=== PATIENT | male | born 1995 | race Caucasian/White ===

== ENCOUNTER 2021-11-26 17:46 | Inpatient (IN) ==
--- NOTE | 2021-11-26 18:18 | Emergency Department Note ---
History of Present Illness General Chief complaint: Mental Health Evaluation Stated complaint: REFERRED BY DOCTOR, MENTAL HEALTH EVALUATION Time Seen by Provider: 11/26/21 18:06 History of Present Illness 25-year-old male presents to the ED with a chief complaint of having delusions and paranoia and not sleeping. Most of the history was obtained from the patient's female partner. She states that a couple weeks ago he started to seem like he was not following conversations. She would be talking to him and he would make irrelevant conclusions or statements related to the conversation. The patient also took apart his computer at 1 point. He asked the female partner to check her ear pods to make sure that they were not tampered with. He also threw out his SIM card from his phone. The patient had a recent change from his Adderall to Vyvanse. Denies being suicidal or homicidal. Home Medications Medication Instructions Recorded Confirmed Type Vyvanse 40 mg PO DAILY 11/26/21 11/26/21 History melatonin 6 mg PO DAILY 11/26/21 11/26/21 History Allergies Allergy/AdvReac Type Severity Reaction Status Date / Time No Known Allergies Allergy Unverified 11/26/21 19:40 Past Med/Surg History Medical History (Updated 11/26/21 @ 23:17 by Mikey Graham DO) ADHD Social History Smoking Status: Never smoker Feels Safe at Home: Yes Review of Systems A total of 10 systems reviewed and were otherwise negative Physical Exam Vital Signs Vital Signs - 24 hr 11/26/21 17:47 11/26/21 21:00 Temperature 36.8 C Temperature Source Oral Pulse Rate [Finger] 86 Respiratory Rate 18 18 Respiratory Effort / Characteristics Non-Labored Respiratory Depth Normal Blood Pressure 146/96 H Blood Pressure [Right Arm] 156/90 H Blood Pressure Mean 112 Blood Pressure Mean [Right Arm] 112 Blood Pressure Position [Right Arm] Standing Pulse Oximetry 97 98 Oxygen Delivery Method Room Air Sepsis Recent Fever Within 48 Hours No Sepsis New/Unexplained Change in Mental Status N/A Sepsis Action Taken by Nursing No Action Required CONSTITUTIONAL/VITAL SIGNS: Reviewed / noted above. GENERAL: Non-toxic in appearance. INTEGUMENTARY: Warm, dry, and [place]. HEAD: Normocephalic. EYES: without scleral icterus or trauma. ENT/OROPHARYNX: clear and moist. LYMPHADENOPATHY/NECK: Is supple without lymphadenopathy or meningismus. RESPIRATORY: Clear to auscultation bilaterally. No increased work of breathing. CARDIOVASCULAR: Regular rate and rhythm. GI/ABDOMEN: Soft and nontender. No organomegaly or pulsatile mass. EXTREMITIES: Warm and well perfused. BACK: No CVA tenderness. NEUROLOGICAL: Intact without focal deficits. PSYCHIATRIC: normal affect. MUSCULOSKELETAL: Normally developed with good muscle tone. TRIAGE NURSING DOCUMENTATION REVIEWED. Medical Decision Making Differential Diagnosis Differential includes toxic ingestions, self-mutilation, suicidal ideation, suicide attempt, paranoia, insomnia, delusions, depression. Medical Records Attestation: I reviewed the patient's medical records. Home Medications Current Medication List: was personally reviewed by me Laboratory Data Attestation: I reviewed the patient's lab results. Result diagrams: 11/26/21 18:34 11/26/21 18:34 Lab Results 11/26/21 11/26/21 11/26/21 Range/Units 18:34 18:34 18:34 WBC 9.79 (4.8-10.8) K/uL RBC 5.34 (4.7-6.1) M/uL Hgb 15.5 (14.0-18.0) g/dL Hct 45.8 (42-52) % MCV 85.8 (80-100) fL MCH 29.0 (25-34) pg MCHC 33.8 (32-36) g/dL RDW Std Deviation 40.7 (36.4-46.3) fL RDW Coeff of Helder 13.0 (11.5-14.5) % Plt Count 297 (130-400) K/uL MPV 9.8 (7.4-10.4) fL Immature Gran % (Auto) 0.2 % Neut % (Auto) 61.3 % Lymph % (Auto) 30.4 % [place] % (Auto) 7.0 % Eos % (Auto) 0.8 % Baso % (Auto) 0.3 % Neut # (Auto) 5.99 (1.4-6.5) K/uL Lymph # (Auto) 2.98 (1.2-3.4) K/uL [place] # (Auto) 0.69 H (0.11-0.59) K/uL Eos # (Auto) 0.08 (0-0.5) K/uL Baso # (Auto) 0.03 (0-0.2) K/uL Immature Gran # (Auto) 0.02 (0.00-0.02) K/uL Sodium 138 (136-145) mmol/L Potassium 3.6 (3.5-5.1) mmol/L Chloride 105 (98-107) mmol/L Carbon Dioxide 22 (21-32) mmol/L Anion Gap 11 (3-11) BUN 13 (6-23) mg/dl Creatinine 0.86 (0.6-1.4) mg/dl Est Cr Clr Drug Dosing 154.0 ml/min Est GFR ( Amer) 140.7 ml/min Est GFR (Non-Af Amer) 121.4 ml/min BUN/Creatinine Ratio 15.1 (10-20) Glucose 80 (70-99(Fasting)) mg/dl Calcium 9.7 (8.5-10.1) mg/dl Total Bilirubin 0.7 (0.2-1.0) mg/dl AST 24 (13-39) U/L ALT 46 (7-52) U/L Alkaline Phosphatase 78 (34-104) U/L Total Protein 7.7 (6.0-8.3) gm/dl Albumin 4.9 (3.4-5.0) gm/dl Globulin 2.8 (2.5-4.0) gm/dl Albumin/Globulin Ratio 1.8 (0.9-2) TSH 1.026 (0.300-4.500) uIu/ml Urine Color Urine Appearance (Clear) Urine pH (4.5-7.5) Ur Specific [place] (1.000-1.030) Urine Protein (Negative) Urine Glucose (UA) (Negative) Urine Ketones (Negative) Urine Blood (Negative) Urine Nitrite (Negative) Urine Bilirubin (Negative) Urine Urobilinogen (Negative) Ur Leukocyte Esterase (Negative) Urine WBC (Auto) (0-5) /hpf Urine RBC (Auto) (0-4) /hpf U Hyaline Cast (Auto) (0-5) /lpf U Epithel Cells (Auto) (0-5) /lpf Urine Bacteria (Auto) (Negative) Salicylates (3.0-30) mg/dl Urine Opiates Screen (Neg) Ur Methadone, Qual (Neg) Acetaminophen (10-30) ug/ml Urine Barbiturates (Neg) Ur Phencyclidine (PCP) (Neg) U Amphetamin/Meth Scrn (Neg) MDMA (Ecstasy) Screen (Neg) U Benzodiazepines Scrn (Neg) Ur Cocaine Metabolite (Neg) U Marijuana (THC) Screen (Neg) Ethyl Alcohol mg/dL (<10.0) mg/dl SARS-CoV-2, RNA, NAAT (NEGATIVE) 11/26/21 11/26/21 11/26/21 Range/Units 18:34 18:34 18:34 WBC (4.8-10.8) K/uL RBC (4.7-6.1) M/uL Hgb (14.0-18.0) g/dL Hct (42-52) % MCV (80-100) fL MCH (25-34) pg MCHC (32-36) g/dL RDW Std Deviation (36.4-46.3) fL RDW Coeff of Helder (11.5-14.5) % Plt Count (130-400) K/uL MPV (7.4-10.4) fL Immature Gran % (Auto) % Neut % (Auto) % Lymph % (Auto) % [place] % (Auto) % Eos % (Auto) % Baso % (Auto) % Neut # (Auto) (1.4-6.5) K/uL Lymph # (Auto) (1.2-3.4) K/uL [place] # (Auto) (0.11-0.59) K/uL Eos # (Auto) (0-0.5) K/uL Baso # (Auto) (0-0.2) K/uL Immature Gran # (Auto) (0.00-0.02) K/uL Sodium (136-145) mmol/L Potassium (3.5-5.1) mmol/L Chloride (98-107) mmol/L Carbon Dioxide (21-32) mmol/L Anion Gap (3-11) BUN (6-23) mg/dl Creatinine (0.6-1.4) mg/dl Est Cr Clr Drug Dosing ml/min Est GFR ( Amer) ml/min Est GFR (Non-Af Amer) ml/min BUN/Creatinine Ratio (10-20) Glucose (70-99(Fasting)) mg/dl Calcium (8.5-10.1) mg/dl Total Bilirubin (0.2-1.0) mg/dl AST (13-39) U/L ALT (7-52) U/L Alkaline Phosphatase (34-104) U/L Total Protein (6.0-8.3) gm/dl Albumin (3.4-5.0) gm/dl Globulin (2.5-4.0) gm/dl Albumin/Globulin Ratio (0.9-2) TSH (0.300-4.500) uIu/ml Urine Color Dark Yellow Urine Appearance Clear (Clear) Urine pH 6.0 (4.5-7.5) Ur Specific [place] 1.038 H (1.000-1.030) Urine Protein Trace H (Negative) Urine Glucose (UA) Negative (Negative) Urine Ketones 4+ H (Negative) Urine Blood Negative (Negative) Urine Nitrite Negative (Negative) Urine Bilirubin Negative (Negative) Urine Urobilinogen Negative (Negative) Ur Leukocyte Esterase Negative (Negative) Urine WBC (Auto) 1-5 (0-5) /hpf Urine RBC (Auto) 0-4 (0-4) /hpf U Hyaline Cast (Auto) 1-5 (0-5) /lpf U Epithel Cells (Auto) 5-10 H (0-5) /lpf Urine Bacteria (Auto) Negative (Negative) Salicylates < 3.0 L (3.0-30) mg/dl Urine Opiates Screen (Neg) Ur Methadone, Qual (Neg) Acetaminophen < 3 L (10-30) ug/ml Urine Barbiturates (Neg) Ur Phencyclidine (PCP) (Neg) U Amphetamin/Meth Scrn (Neg) MDMA (Ecstasy) Screen (Neg) U Benzodiazepines Scrn (Neg) Ur Cocaine Metabolite (Neg) U Marijuana (THC) Screen (Neg) Ethyl Alcohol mg/dL < 10.0 (<10.0) mg/dl SARS-CoV-2, RNA, NAAT (NEGATIVE) 11/26/21 11/26/21 Range/Units 18:34 18:34 WBC (4.8-10.8) K/uL RBC (4.7-6.1) M/uL Hgb (14.0-18.0) g/dL Hct (42-52) % MCV (80-100) fL MCH (25-34) pg MCHC (32-36) g/dL RDW Std Deviation (36.4-46.3) fL RDW Coeff of Helder (11.5-14.5) % Plt Count (130-400) K/uL MPV (7.4-10.4) fL Immature Gran % (Auto) % Neut % (Auto) % Lymph % (Auto) % [place] % (Auto) % Eos % (Auto) % Baso % (Auto) % Neut # (Auto) (1.4-6.5) K/uL Lymph # (Auto) (1.2-3.4) K/uL [place] # (Auto) (0.11-0.59) K/uL Eos # (Auto) (0-0.5) K/uL Baso # (Auto) (0-0.2) K/uL Immature Gran # (Auto) (0.00-0.02) K/uL Sodium (136-145) mmol/L Potassium (3.5-5.1) mmol/L Chloride (98-107) mmol/L Carbon Dioxide (21-32) mmol/L Anion Gap (3-11) BUN (6-23) mg/dl Creatinine (0.6-1.4) mg/dl Est Cr Clr Drug Dosing ml/min Est GFR ( Amer) ml/min Est GFR (Non-Af Amer) ml/min BUN/Creatinine Ratio (10-20) Glucose (70-99(Fasting)) mg/dl Calcium (8.5-10.1) mg/dl Total Bilirubin (0.2-1.0) mg/dl AST (13-39) U/L ALT (7-52) U/L Alkaline Phosphatase (34-104) U/L Total Protein (6.0-8.3) gm/dl Albumin (3.4-5.0) gm/dl Globulin (2.5-4.0) gm/dl Albumin/Globulin Ratio (0.9-2) TSH (0.300-4.500) uIu/ml Urine Color Urine Appearance (Clear) Urine pH (4.5-7.5) Ur Specific [place] (1.000-1.030) Urine Protein (Negative) Urine Glucose (UA) (Negative) Urine Ketones (Negative) Urine Blood (Negative) Urine Nitrite (Negative) Urine Bilirubin (Negative) Urine Urobilinogen (Negative) Ur Leukocyte Esterase (Negative) Urine WBC (Auto) (0-5) /hpf Urine RBC (Auto) (0-4) /hpf U Hyaline Cast (Auto) (0-5) /lpf U Epithel Cells (Auto) (0-5) /lpf Urine Bacteria (Auto) (Negative) Salicylates (3.0-30) mg/dl Urine Opiates Screen Neg (Neg) Ur Methadone, Qual Neg (Neg) Acetaminophen (10-30) ug/ml Urine Barbiturates Neg (Neg) Ur Phencyclidine (PCP) Neg (Neg) U Amphetamin/Meth Scrn Pos H (Neg) MDMA (Ecstasy) Screen Neg (Neg) U Benzodiazepines Scrn Neg (Neg) Ur Cocaine Metabolite Neg (Neg) U Marijuana (THC) Screen Pos H (Neg) Ethyl Alcohol mg/dL (<10.0) mg/dl SARS-CoV-2, RNA, NAAT NEGATIVE (NEGATIVE) MDM Narrative 25-year-old male presents with his female partner with concerns of paranoia, insomnia and incongruent thoughts. The patient's medical evaluation has been reviewed. He is medically cleared. He was accepted at [facility] requested Zyprexa be given. This was given p.o. Impression & Plan Acute paranoia, Insomnia Discharge Plan Visit Data Chief Complaint: Mental Health Evaluation Stated Complaint: REFERRED BY DOCTOR, MENTAL HEALTH EVALUATION ED Provider: Mikey Graham Discharge Problem: Acute paranoia, Insomnia Patient Disposition: Transfer Behavioral Health Fac Forms Stand Alone Forms: My [facility], Suicide Prevention Resources Prescriptions Prescriptions: No Action Vyvanse tablet 40 mg PO DAILY RF: 0 melatonin 6 mg PO DAILY RF: 0 Referrals Referrals: PCP,NO [Primary Care Provider] -
[2021-11-26 18:50] LABS: Appearance Urine Clear (Clear); Bacteria Urine Automated Negative (Negative); Bilirubin Urine Negative (Negative); Blood Urine Negative (Negative); Color Urine Dark Yellow; Glucose Urine UA Negative (Negative); Ketones Urine 4+ (Negative); Leukocyte Esterase Urine Negative (Negative); Nitrite Urine Negative (Negative); Protein Urine Trace (Negative); RBC Urine Automated 0-4 /hpf (0-4); Specific Gravity Urine 1.038 (1.000-1.030); Urobilinogen Urine Negative (Negative)
[2021-11-26 19:03] LABS: Basophils # (auto) 0.03 K/uL (0-0.2); Basophils % (auto) 0.3 %; Eosinophils # (auto) 0.08 K/uL (0-0.5); Eosinophils % (auto) 0.8 %; Hematocrit (blood only) 45.8 % (42-52); Hemoglobin 15.5 g/dL (14.0-18.0); Immature Granulocytes # (auto) 0.02 K/uL (0.00-0.02); Immature Granulocytes % (auto) 0.2 %; Lymphocytes # (auto) 2.98 K/uL (1.2-3.4); Lymphocytes % (auto) 30.4 %; Mean Corpuscular Hgb Conc 33.8 g/dL (32-36); Mean Corpuscular Volume 85.8 fL (80-100); Mean Platelet Volume 9.8 fL (7.4-10.4); Monocytes # (auto) 0.69 K/uL (0.11-0.59); Neutrophils # (auto) 5.99 K/uL (1.4-6.5); Neutrophils % (auto) 61.3 %; Platelet Count 297 K/uL (130-400); RDW Standard Deviation 40.7 fL (36.4-46.3); Red Blood Count 5.34 M/uL (4.7-6.1); White Blood Count 9.79 K/uL (4.8-10.8)
[2021-11-26 19:08] LABS: Albumin Globulin Ratio 1.8 (0.9-2); Albumin Level 4.9 gm/dl (3.4-5.0); BUN Creatinine Ratio 15.1 (10-20); Bilirubin,Total 0.7 mg/dl (0.2-1.0); Calcium 9.7 mg/dl (8.5-10.1); Est GFR (African American) 140.7 ml/min; Est GFR (Non-African American) 121.4 ml/min; Globulin 2.8 gm/dl (2.5-4.0); Potassium 3.6 mmol/L (3.5-5.1); Total Protein 7.7 gm/dl (6.0-8.3)
[2021-11-26 19:10] LABS: Acetaminophen < 3 ug/ml (10-30); Salicylate < 3.0 mg/dl (3.0-30)
[2021-11-26 19:36] LABS: Amphetamines+Metham, Urine Pos (Neg); Barbiturates, Urine Neg (Neg); Benzodiazepine, Urine Neg (Neg); Cocaine, Urine Neg (Neg); MDMA (Ecstacy), Urine Neg (Neg); Methadone, Urine Neg (Neg); Opiate, Urine Neg (Neg); Phencyclidine, Urine Neg (Neg)
[2021-11-26] MEDS ORDERED: OLANZapine 5 MG TABLET PO STA (22:47)
[2021-11-27] MEDS ORDERED: BISMUTH SUBSALICYLATE LIQD 236 ML PO PRN (01:17)
[2021-11-27] MEDS ORDERED: ALUMINUM/MAGNESIUM SUSP 30 ML UDC PO PRN (01:17)
[2021-11-27] MEDS ORDERED: SODIUM CHLORIDE 0.65% NA SOLN 45 ML (OCEAN) PRN (01:17)
[2021-11-27] MEDS ORDERED: hydrOXYzine HCl 25 MG TAB PO PRN ×2 (01:17)
[2021-11-27] MEDS ORDERED: MAGNESIUM HYDROXIDE SUSP 30 ML UDC PO PRN (01:17)
[2021-11-27] MEDS ORDERED: ACETAMINOPHEN 325 MG TAB PO PRN (01:17)
--- NOTE | 2021-11-27 08:43 | History & Physical ---
Date of Service November 27, 2021 Impression / Recommendations Impression The patient is a 25 year old man with a history of ADHD who was admitted for worsening psychosis in the context of synthetic cannabis use and recent switch from Adderall to Vyvanse and ongoing stress related to an upcoming move across the country next month. Diagnostically consistent with unspecified psychosis, differential including substance-induced vs medication-induced vs BPAD with ken vs primary psychotic disorder/brief psychotic episode vs MDD with psychotic features. Medical cause unlikely given no neurological symptoms, stable vital signs and recent increase in substance use and med change that better explains recent symptom emergence. The patient is deemed unstable and requires psychiatric hospitalization for diagnostic clarification, safety and stabilization, medication management and development of further coping skills. Discussed medication treatment options. Discussed risks, benefits and alternatives. Patient would like to start and consented to olanzapine for psychosis. Reviewed side effects including but not limited to: movement (TD, NMS), cardiac (QTc prolongation), and metabolic (stroke, insulin resistance) and necessity for fasting lipid and glucose labwork and AIMS done with score of 0. The patient's use history suggests problematic substance use. Brief intervention was offered and accepted. Intervention was greater than 5 minutes in length and included assessing readiness to quit, advice on how to reduce or abstain and to set a specific goal for this hospitalization. script worker will also assist in anticipating barriers to reducing or abstaining from substance use and in problem-solving for solutions to those problems while arranging for referral to appropriate treatment. The patient is in contemplative stage with regards to transtheoretical model of change. The patient is advised to decrease consumption due to depressant and dopaminergic effects and risk of interaction with prescription medications. The patient agreed to reduce synthetic cannabis and vaping use and will be provided with recovery materials to continue to educate self on how to cope with their condition without using substances. MNPR due tp acute psychosis and paranoia and inability to tolerate interactions with peers. (1) Brief psychotic disorder: (2) ADHD: (3) Cannabis use disorder, moderate, dependence: 11/27/21: The patient was admitted to the [facility] ([facility]) on q15 min checks (behavioral with suicide precautions) for safety. The patient will participate in group, recreational, and milieu therapies and will be offered additional individual and family sessions as clinically appropriate. -Start zyprexa 2.5 mg qAM & 5 mg qhs -fasting lipid and glucose when able to tolerate (hopefully in next 1-2 days) -NRT patch and gum prn -Will attempt to reach out to Dr. Rosa once he signs PING and given constraints of holiday weekend Inventory Assets Strengths: supportive family and partner, employed, some ability to reality-test, willing to seek treatment Needs: medication adjustment, safety/stabilization, additional coping skills Suicide Risk Level Suicide Risk Level: Moderate (q15 min suicide checks) (High-Moderate) Suicide Risk Level Comments: Acute risk is elevated given passive SI and acute psychosis but also able to safety contract, feels safe here, agrees to notify nursing if he develops active SI and denies command AH. 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 Chief Complaint "I'm losing my mind". History of Present Illness Dinora presents for psychiatric admission for worsening paranoia, disorganized behaviors, auditory hallucinations which started about three weeks ago and have been acutely worsening since Monday. He also developed passive SI in the last few days due to feeling like he's "losing my mind". He notes "I know it's just in my head" but feels unable to manage the auditory hallucinations nor paranoia. He is very tearful and distraught throughout the interview expressing his distress from the psychosis symptoms but can confirm that things worsened acutely in the last few days and that the zyprexa last night "really helped, it was the first time I've been able to calm down in weeks". Further history is based on his report as well as collateral from ED reports supplied in part by his girlfriend and collateral from his mother. About 3 weeks ago due to a change in insurance coverage his psychiatrist switched him from Adderall to Vyvanse but he felt more activated and paranoid with this change and they had recently reduced the dose and then he discontinued it on . He's also been using delta 8, a synthetic cannabis product, and vaping high amounts of nicotine in the last 4 weeks. He's had more disrupted sleep patterns-sleeping a lot and then more insomnia, as well as alteration in appetite with increased at times and then periods of decreased appetite with reported weight loss of up to 30lbs in the last month. BMI on admission is 25 and normal. On Monday he had to stop his work day early due to worsening disorganization and became worried that he was being monitored and took apart his computer and removed the SIM card from his phone. He was paranoid his conversations with his girlfriend were being monitored through her [employer] airpods. He also reported auditory hallucinations of "noises" in the zepeda and "from my stomach". Had also been hearing auditory hallucinations of the voice of his former speech coach and his mother and seeing visual hallucinations of spots and bugs. His job has been very stressful recently and he and his girlfriend are in the process of moving at the start of December to [place]. His mother noted that he previously became very paranoia and locked himself in his apartment in college after being prescribed Vyvanse. Other recent symptoms of psychosis include questioning if his sister was actually his sister and on admission to [facility] tried to eat a banana with a straw and thought some of his patient rights materials were written in Macedonian. Past Psychiatric History Current Psychiatric Diagnosis: psychosis nos Outpatient Services: -Dr. Rylie Rosa psychiatrist out of who he sees via telemedicine Previous Psych Admissions: denies Do You Have Access To A Gun?: No History of Previous Suicide Attempt: No Past Medication Trials: Vyvanse, Adderall Past Head Trauma/Neuro History History of Concussion/Seizure: No Allergies Allergy/AdvReac Type Severity Reaction Status Date / Time No Known Allergies Allergy Verified 11/27/21 13:47 Home Medications Medication Instructions Recorded Confirmed Type Vyvanse 40 mg PO DAILY 11/26/21 11/26/21 History melatonin 6 mg PO DAILY 11/26/21 11/26/21 History Family History Family History of: Depression, Anxiety and Alcoholism/Drug Abuse Family Mental Health History Comment: Father - sleep apnea; depression; anxiety; etoh (stopped) Mother - depression; anxiety Alcohol History Hx of Alcohol Use Over the Past 12 Months: Yes (2-4x/month, 1 or 2 drinks) AUDIT Total Score: 5 Smoking Use Have You Smoked or Used Tobacco Products in the Last 30 Days: Yes tobacco type: e-cigarettes Smoking Status: Current every day smoker Substance History Hx of Prescription Med Misuse Over the Past 12 Months: No Hx of Over the Counter Med Misuse Over the Past 12 Months: No Hx of Inhalent Misuse Over the Past 12 Months: No Hx of Organic Substance Use Over the Past 12 Months: Yes (THC everyday; unsure amount) Hx of Illegal Substances/Street Drug Use Over Past 12 Months: No Problems as a Result of Past Substance Use: None Identified Problems as a Result of Past Substance Use Comments: using Delta 8 for a couple of months - using more recently in last mo Personal History Living Arrangements: Apartment Highest Grade Completed: College 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 Required: No Beliefs That Will Affect Care: None Feels Safe at Home: Yes Assistive Devices: Contacts and Glasses Assistive Devices Comment: pt has glasses here but not his contacts Review of Systems Review of Systems: All systems reviewed & are unremarkable except as noted in HPI & below ([place], denies any other neurological symptoms, denies any recent fever) Physical Exam Psychiatric: Orientation: alert and oriented x 3 Apperance: appropriately dressed and appropriately groomed Eye Contact: + fair eye contact Motor Behavior: no abnormal motor movements Speech: normal rate/rhythm/volume of speech Affect: + depressed affect, + anxious affect and + tearful affect Mood: + depressed mood and + anxious mood Thought Process: + thought blocking, + circumstantial thought process and + looseness of associations Thought Content: + paranoid, + delusions, + ideas of reference and + thought broadcasting Suicidal Thoughts: denies suicidal plan and denies suicidal intent; + reports suicidal thoughts (intermittent passive thoughts ) Homicidal Thoughts: denies homicidal thoughts Hallucinations: no auditory hallucinations and no visual hallucinations Cognition: recent memory grossly intact, remote memory grossly intact, attention grossly intact and language grossly intact Estimated Intelligence: consistent with education level Insight: + limited insight Judgement: + limited judgement Vital Signs (Past 24 Hours): Last Vital Signs Temp 36.6 C 11/27/21 06:37 Pulse 80 11/27/21 06:37 Resp 18 11/27/21 06:37 BP 104/64 11/27/21 06:37 Pulse Ox 100 11/27/21 06:37 Exam Statement: A physical exam was performed in the ED by Dr. Graham for the purposes of medical clearance. I accept that physical as correct and adequate for the purposes of the inpatient physical exam. Results & Data ([facility]) Laboratory Results Laboratory Results - last 24 hr 11/26/21 11/26/21 11/26/21 18:34 18:34 18:34 WBC 9.79 RBC 5.34 Hgb 15.5 Hct 45.8 MCV 85.8 MCH 29.0 MCHC 33.8 RDW Std Deviation 40.7 RDW Coeff of Helder 13.0 Plt Count 297 MPV 9.8 Immature Gran % (Auto) 0.2 Neut % (Auto) 61.3 Lymph % (Auto) 30.4 Crook % (Auto) 7.0 Eos % (Auto) 0.8 Baso % (Auto) 0.3 Neut # (Auto) 5.99 Lymph # (Auto) 2.98 Crook # (Auto) 0.69 H Eos # (Auto) 0.08 Baso # (Auto) 0.03 Immature Gran # (Auto) 0.02 Sodium 138 Potassium 3.6 Chloride 105 Carbon Dioxide 22 Anion Gap 11 BUN 13 Creatinine 0.86 Est Cr Clr Drug Dosing 154.0 Est GFR ( Amer) 140.7 Est GFR (Non-Af Amer) 121.4 BUN/Creatinine Ratio 15.1 Glucose 80 Calcium 9.7 Total Bilirubin 0.7 AST 24 ALT 46 Alkaline Phosphatase 78 Total Protein 7.7 Albumin 4.9 Globulin 2.8 Albumin/Globulin Ratio 1.8 TSH 1.026 Urine Color Urine Appearance Urine pH Ur Specific Chandler Urine Protein Urine Glucose (UA) Urine Ketones Urine Blood Urine Nitrite Urine Bilirubin Urine Urobilinogen Ur Leukocyte Esterase Urine WBC (Auto) Urine RBC (Auto) U Hyaline Cast (Auto) U Epithel Cells (Auto) Urine Bacteria (Auto) Salicylates Urine Opiates Screen Ur Methadone, Qual Acetaminophen Urine Barbiturates Ur Phencyclidine (PCP) U Amphetamines Confirm U Amphetamin/Meth Scrn U Methamphetamin Confrm MDMA (Ecstasy) Screen U Benzodiazepines Scrn Ur Cocaine Metabolite U Marijuana (THC) Screen U Marijuana THC Carboxy Drug Screen Comment Ethyl Alcohol mg/dL SARS-CoV-2, RNA, NAAT 11/26/21 11/26/21 11/26/21 18:34 18:34 18:34 WBC RBC Hgb Hct MCV MCH MCHC RDW Std Deviation RDW Coeff of Helder Plt Count MPV Immature Gran % (Auto) Neut % (Auto) Lymph % (Auto) Crook % (Auto) Eos % (Auto) Baso % (Auto) Neut # (Auto) Lymph # (Auto) Crook # (Auto) Eos # (Auto) Baso # (Auto) Immature Gran # (Auto) Sodium Potassium Chloride Carbon Dioxide Anion Gap BUN Creatinine Est Cr Clr Drug Dosing Est GFR ( Amer) Est GFR (Non-Af Amer) BUN/Creatinine Ratio Glucose Calcium Total Bilirubin AST ALT Alkaline Phosphatase Total Protein Albumin Globulin Albumin/Globulin Ratio TSH Urine Color Dark Yellow Urine Appearance Clear Urine pH 6.0 Ur Specific Chandler 1.038 H Urine Protein Trace H Urine Glucose (UA) Negative Urine Ketones 4+ H Urine Blood Negative Urine Nitrite Negative Urine Bilirubin Negative Urine Urobilinogen Negative Ur Leukocyte Esterase Negative Urine WBC (Auto) 1-5 Urine RBC (Auto) 0-4 U Hyaline Cast (Auto) 1-5 U Epithel Cells (Auto) 5-10 H Urine Bacteria (Auto) Negative Salicylates < 3.0 L Urine Opiates Screen Ur Methadone, Qual Acetaminophen < 3 L Urine Barbiturates Ur Phencyclidine (PCP) U Amphetamines Confirm U Amphetamin/Meth Scrn U Methamphetamin Confrm MDMA (Ecstasy) Screen U Benzodiazepines Scrn Ur Cocaine Metabolite U Marijuana (THC) Screen U Marijuana THC Carboxy Drug Screen Comment Ethyl Alcohol mg/dL < 10.0 SARS-CoV-2, RNA, NAAT 11/26/21 11/26/21 11/26/21 18:34 18:34 18:34 WBC RBC Hgb Hct MCV MCH MCHC RDW Std Deviation RDW Coeff of Helder Plt Count MPV Immature Gran % (Auto) Neut % (Auto) Lymph % (Auto) Crook % (Auto) Eos % (Auto) Baso % (Auto) Neut # (Auto) Lymph # (Auto) Crook # (Auto) Eos # (Auto) Baso # (Auto) Immature Gran # (Auto) Sodium Potassium Chloride Carbon Dioxide Anion Gap BUN Creatinine Est Cr Clr Drug Dosing Est GFR ( Amer) Est GFR (Non-Af Amer) BUN/Creatinine Ratio Glucose Calcium Total Bilirubin AST ALT Alkaline Phosphatase Total Protein Albumin Globulin Albumin/Globulin Ratio TSH Urine Color Urine Appearance Urine pH Ur Specific Chandler Urine Protein Urine Glucose (UA) Urine Ketones Urine Blood Urine Nitrite Urine Bilirubin Urine Urobilinogen Ur Leukocyte Esterase Urine WBC (Auto) Urine RBC (Auto) U Hyaline Cast (Auto) U Epithel Cells (Auto) Urine Bacteria (Auto) Salicylates Urine Opiates Screen Neg Ur Methadone, Qual Neg Acetaminophen Urine Barbiturates Neg Ur Phencyclidine (PCP) Neg U Amphetamines Confirm Pending U Amphetamin/Meth Scrn Pos H U Methamphetamin Confrm Pending MDMA (Ecstasy) Screen Neg U Benzodiazepines Scrn Neg Ur Cocaine Metabolite Neg U Marijuana (THC) Screen Pos H U Marijuana THC Carboxy Pending Drug Screen Comment Pending Ethyl Alcohol mg/dL SARS-CoV-2, RNA, NAAT NEGATIVE Current Inpatient Medications Current Inpatient Medications: Current Inpatient Medications Acetaminophen (Acetaminophen 325 Mg Tab) 650 mg PO Q4H PRN PRN Reason: Headache or Minor Fever Stop: 12/27/21 01:16 Al Hydrox/Mg Hydrox/Simethicone (Aluminum/Magnesium Susp 30 Ml Udc) 30 ml PO Q4H PRN PRN Reason: GI Upset Stop: 12/27/21 01:16 Bismuth Subsalicylate (Bismuth Subsalicylate Liqd 236 Ml) 15 ml PO PRN PRN PRN Reason: Loose Stool Stop: 12/27/21 01:16 Hydroxyzine HCl (Hydroxyzine Hcl 25 Mg Tab) 50 mg PO HSZ PRN PRN Reason: Insomnia Stop: 12/27/21 01:16 Last Admin: 11/27/21 02:31 Dose: 50 mg Documented by: Hydroxyzine HCl (Hydroxyzine Hcl 25 Mg Tab) 25 mg PO Q4H PRN PRN Reason: Anxiety Stop: 12/27/21 01:16 Magnesium Hydroxide (Magnesium Hydroxide Susp 30 Ml Udc) 30 ml PO DAILY PRN PRN Reason: Constipation Stop: 12/27/21 01:16 Olanzapine (Olanzapine 5 Mg Tablet) 5 mg PO BID PRN PRN Reason: Anxiety/Agitation Stop: 12/27/21 01:14 Sodium Chloride (Sodium Chloride 0.65% Na Soln 45 Ml ([place])) 1 - 2 sprays NA PRN PRN PRN Reason: Nasal Dryness/Congestion Stop: 12/27/21 01:16
[2021-11-27] MEDS: OLANZAPINE 2.5 MG TAB PO SCH (10:54)
[2021-11-27] MEDS ORDERED: NICOTINE POLACRILEX 2 MG GUM MT PRN (13:57)
[2021-11-27] MEDS ORDERED: NICOTINE 7 MG/24 HR TDSY TD PRN (14:15)
[2021-11-27] MEDS: OLANZapine 5 MG TABLET PO PRN (19:11)
[2021-11-27] MEDS ORDERED: OLANZapine 5 MG TABLET PO SCH (22:00)
--- NOTE | 2021-11-28 08:41 | Psychiatric Progress Note ---
Date of Service November 28, 2021 Impression / Recommendations Impression The patient is a 25 year old man with a history of ADHD who was admitted for worsening psychosis in the context of synthetic cannabis use and recent switch from Adderall to Vyvanse and ongoing stress related to an upcoming move across the country next month. Diagnostically consistent with unspecified psychosis, differential including substance-induced vs medication-induced vs BPAD with ken vs primary psychotic disorder/brief psychotic episode vs MDD with psychotic features. Medical cause unlikely given no neurological symptoms, stable vital signs and recent increase in substance use and med change that better explains recent symptom emergence. The patient is deemed unstable and requires psychiatric hospitalization for diagnostic clarification, safety and stabilization, medication management and development of further coping skills. MNPR due tp acute psychosis and paranoia and inability to tolerate interactions with peers. 11/28/21: Continues to have acute psychosis with significant behavioral diso rganization, mood lability, anxiety and ideas of reference. Tolerating zyprexa, will increase dose to further target ongoing psychosis. His level of disorganization is quite striking and if it persists and he can tolerate fasting labwork in the morning may consider head imaging (likely could not tolerate MRI so likely CT) to rule out any other medical causes given recent weight loss though substance-induced remains most likely cause. (1) Brief psychotic disorder: (2) ADHD: (3) Cannabis use disorder, moderate, dependence: 11/28/21: Increase to zyprexa 5mg qAM and 10 mg qHS. Fasting labwork in the morning. 11/27/21: The patient was admitted to the [facility] ([facility] mental health unit) on q15 min checks (behavioral with suicide precautions) for safety. The patient will participate in group, recreational, and milieu therapies and will be offered additional individual and family sessions as clinically appropriate. -Start zyprexa 2.5 mg qAM & 5 mg qhs -fasting lipid and glucose when able to tolerate (hopefully in next 1-2 days) -NRT patch and gum prn -Will attempt to reach out to Dr. Rosa once he signs PING and given constraint s of holiday weekend Inventory Assets Strengths: supportive family and partner, employed, some ability to reality-test, willing to seek treatment Needs: medication adjustment, safety/stabilization, additional coping skills Suicide Risk Level Suicide Risk Level: Moderate (q15 min suicide checks) (High-Moderate) Suicide Risk Level Comments: Acute risk is elevated given passive SI and acute psychosis but also able to safety contract, feels safe here, agrees to notify nursing if he develops active SI and denies command AH. 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 Chief Complaint "Where should I put this?" (holding paper cup in hand). Review of Systems Sleep Information Total Hours of Sleep: 9 Sleep Comments: Meal Information Percent Meal Consumed - Breakfast: 50 Percent Meal Consumed - Lunch: 0 Percent Meal Consumed - Dinner: 100 Nutrition Comment: pt. had a late breakfast/allowed to sleep. Subjective Subjective Patient was seen & assessed and interval progress reviewed with treatment team nursing and social work. Out of his room last night but very disorganized, tried to shower but began crying when he couldn't gather the needed items and briefly thought he was a staff member on the unit and thought he lost his keys. Was interrupting peers but was able to briefly participate in community meeting. He signed a 72 hour notice last night but then rescinded it today. Slept well overnight. Today continues to have periods of significant disorganization including trying to use a pen to start the washing machine, tried to put a toothbrush in the linen hamper and needs significant assistance and support to attend to basic ADLs related to feeding himself and throwing out garage. He becomes easily overwhelmed and tearful focused on events in the past that he feels very guilty about. Collateral from family confirmed no family history of psychosis, schizophrenia nor BPAD. Girlfriend provided collateral that he was vaping and using delta 8 all throughout the day at high levels through the last month. Dinora feels his paranoia is getting a little better and he continues to find the olanzapine helpful. He's also utilizing prn medications. He denies any side effects, no lightheadedness, no dizziness, no SNOWDEN. Eating well at meals with support gathering tray and utensils. Spoke with his girlfriend on the phone but then thought he could hear her thoughts coming into his head. Physical Exam Psychiatric Orientation: alert and oriented x 3 Apperance: appropriately dressed and appropriately groomed Eye Contact: + fair eye contact Motor Behavior: no abnormal motor movements Speech: normal rate/rhythm/volume of speech Affect: + tearful affect and + labile affect Mood: + depressed mood and + anxious mood Thought Process: + thought blocking, + circumstantial thought process and + looseness of associations Thought Content: + paranoid, + delusions, + ideas of reference and + thought broadcasting Suicidal Thoughts: denies suicidal plan and denies suicidal intent; + reports suicidal thoughts (intermittent passive thoughts ) Homicidal Thoughts: denies homicidal thoughts Hallucinations: + auditory hallucinations; no visual hallucinations Cognition: recent memory grossly intact, remote memory grossly intact, attention grossly intact and language grossly intact Estimated Intelligence: consistent with education level Insight: + limited insight Judgement: + limited judgement Vital Signs (Past 24 Hours) Last Vital Signs Temp 36.9 C 11/27/21 21:11 Pulse 80 11/27/21 06:37 Resp 18 11/27/21 06:37 BP 104/64 11/27/21 06:37 Pulse Ox 100 11/27/21 06:37 Results & Data ([facility]) Current Inpatient Medications Current Inpatient Medications: Current Inpatient Medications Acetaminophen (Acetaminophen 325 Mg Tab) 650 mg PO Q4H PRN PRN Reason: Headache or Minor Fever Stop: 12/27/21 01:16 Last Admin: 11/27/21 10:38 Dose: 650 mg Documented by: Al Hydrox/Mg Hydrox/Simethicone (Aluminum/Magnesium Susp 30 Ml Udc) 30 ml PO Q4H PRN PRN Reason: GI Upset Stop: 12/27/21 01:16 Bismuth Subsalicylate (Bismuth Subsalicylate Liqd 236 Ml) 15 ml PO PRN PRN PRN Reason: Loose Stool Stop: 12/27/21 01:16 Hydroxyzine HCl (Hydroxyzine Hcl 25 Mg Tab) 50 mg PO HSZ PRN PRN Reason: Insomnia Stop: 12/27/21 01:16 Last Admin: 11/27/21 02:31 Dose: 50 mg Documented by: Hydroxyzine HCl (Hydroxyzine Hcl 25 Mg Tab) 25 mg PO Q4H PRN PRN Reason: Anxiety Stop: 12/27/21 01:16 Magnesium Hydroxide (Magnesium Hydroxide Susp 30 Ml Udc) 30 ml PO DAILY PRN PRN Reason: Constipation Stop: 12/27/21 01:16 Miscellaneous (Remove Nicoderm Patch) 1 ea N/A DAILY@0859 [facility] Stop: 12/28/21 08:58 Nicotine (Nicotine 7 Mg/24 Hr Tdsy) 7 mg TD QAM PRN PRN Reason: nicotine cravings Stop: 12/28/21 14:14 Nicotine Polacrilex (Nicotine Polacrilex 2 Mg Gum) 1 piece MT PRN PRN PRN Reason: nicotine cravings Stop: 12/27/21 13:56 Olanzapine (Olanzapine 5 Mg Tablet) 5 mg PO BID PRN PRN Reason: Anxiety/Agitation Stop: 12/27/21 01:14 Last Admin: 11/27/21 19:11 Dose: 5 mg Documented by: Olanzapine (Olanzapine 2.5 Mg Tab) 2.5 mg PO QAM GARETH Stop: 12/27/21 10:44 Last Admin: 11/27/21 10:54 Dose: 2.5 mg Documented by: Olanzapine (Olanzapine 5 Mg Tablet) 5 mg PO HS [facility] Stop: 12/27/21 21:59 Last Admin: 11/27/21 22:34 Dose: 5 mg Documented by: Sodium Chloride (Sodium Chloride 0.65% Na Soln 45 Ml ([place])) 1 - 2 sprays NA PRN PRN PRN Reason: Nasal Dryness/Congestion Stop: 12/27/21 01:16 Mental Health & Subst Abuse Tx Therapist Name of Therapist: None Child And Family Services Specialist Name of Child And Family Services Specialist: None Post Discharge Appointments Primary Care Physician Name Of Family Doctor: none
[2021-11-28] MEDS: OLANZAPINE 2.5 MG TAB PO SCH ×3 (10:41→13:12)
[2021-11-28] MEDS: OLANZapine 5 MG TABLET PO PRN (13:12)
[2021-11-28] MEDS ORDERED: OLANZapine 5 MG TABLET PO PRN (16:09)
[2021-11-28] MEDS: OLANZapine 10 MG TAB PO SCH (21:15)
[2021-11-29 07:01] LABS: Amphetamine Urine, Confirm 3070 ng/mL (<250); Marijuana Quant, GCMS Urine 4556 ng/mL (<5); Methamphetamine, Ur Confirm NEGATIVE ng/mL (<250)
[2021-11-29] MEDS: OLANZapine 5 MG TABLET PO SCH (08:30)
[2021-11-29 08:50] LABS: Chol HDL Ratio 4.4 (0-5)
--- NOTE | 2021-11-29 08:51 | Psychiatric Progress Note ---
Date of Service November 29, 2021 Impression / Recommendations Impression The patient is a 25 year old man with a history of ADHD who was admitted for worsening psychosis in the context of synthetic cannabis use and recent switch from Adderall to Vyvanse and ongoing stress related to an upcoming move across the country next month. Diagnostically consistent with unspecified psychosis, differential including substance-induced vs medication-induced vs BPAD with ken vs primary psychotic disorder/brief psychotic episode vs MDD with psychotic features. Medical cause unlikely given no neurological symptoms, stable vital signs and recent increase in substance use and med change that better explains recent symptom emergence. The patient is deemed unstable and requires psychiatric hospitalization for diagnostic clarification, safety and stabilization, medication management and development of further coping skills. MNPR due tp acute psychosis and paranoia and inability to tolerate interactions with peers. 11/29/21: Slight improvement today with higher dose of olanzapine and tolerating well without side effects. Suspect that given extent and high concentration of cannabis use it's taking some time for substance-induced psychosis to resolve. Reviewed fasting labwork which showed normal cholesterol, TGs, glucose and low HDL. (1) Brief psychotic disorder: (2) ADHD: (3) Cannabis use disorder, moderate, dependence: 11/29/21: Continue zyprexa and current tx plan. 11/28/21: Increase to zyprexa 5mg qAM and 10 mg qHS. Fasting labwork in the morning. 11/27/21: The patient was admitted to the [facility] ([facility] mental health unit) on q15 min checks (behavioral with suicide precautions) for safety. The patient will participate in group, recreational, and milieu therapies and will be offered additional individual and family sessions as clinically appropriate. -Start zyprexa 2.5 mg qAM & 5 mg qhs -fasting lipid and glucose when able to tolerate (hopefully in next 1-2 days) -NRT patch and gum prn -Will attempt to reach out to Dr. Rosa once he signs PING and given constraints of holiday weekend Inventory Assets Strengths: supportive family and partner, employed, some ability to reality-test, willing to seek treatment Needs: medication adjustment, safety/stabilization, additional coping skills Suicide Risk Level Suicide Risk Level: Moderate (q15 min suicide checks) (High-Moderate) Suicide Risk Level Comments: Acute risk is elevated given passive SI and acute psychosis but also able to safety contract, feels safe here, agrees to notify nursing if he develops active SI and denies command AH. 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 Chief Complaint "I feel a little better". Review of Systems Sleep Information Total Hours of Sleep: 8.25 Meal Information Percent Meal Consumed - Breakfast: 50 Percent Meal Consumed - Lunch: 75 Percent Meal Consumed - Dinner: 100 Nutrition Comment: pt. ate 50% of breakfast after sleeping in Subjective Subjective Patient was seen & assessed and interval progress reviewed with treatment team nursing and social work. Remains very disorganized with difficulty filling out menu and using his deodorant. Continues to require frequent reassurance from staff due to periods of tearfulness and easily overwhelmed by even brief social interactions but able to attend groups today. States that he feels the asuncion zapine is helping noting "it's easier to identify what's real and what's not". He denies any side effects from the olanzapine. At points reports feeling depressed to counselor and nursing but then when asked by me states "a little bit but just the amount that runs in my family of depression and anxiety". Denies SI. Physical Exam Psychiatric Orientation: alert and oriented x 3 Apperance: appropriately dressed and appropriately groomed Eye Contact: + fair eye contact Motor Behavior: no abnormal motor movements Speech: normal rate/rhythm/volume of speech Affect: + depressed affect, + anxious affect, + tearful affect and + labile affect Mood: + depressed mood and + anxious mood Thought Process: + thought blocking, + circumstantial thought process and + looseness of associations Thought Content: + paranoid, + delusions, + ideas of reference and + thought broadcasting Suicidal Thoughts: denies suicidal plan and denies suicidal intent; + reports suicidal thoughts (intermittent passive thoughts ) Homicidal Thoughts: denies homicidal thoughts Hallucinations: + auditory hallucinations; no visual hallucinations Cognition: recent memory grossly intact, remote memory grossly intact, attention grossly intact and language grossly intact Estimated Intelligence: consistent with education level Insight: + limited insight Judgement: + limited judgement Vital Signs (Past 24 Hours) Last Vital Signs Temp 36.5 C 11/29/21 06:34 Pulse 92 H 11/29/21 06:35 Resp 16 11/29/21 06:34 BP 137/82 11/29/21 06:35 Pulse Ox 100 11/27/21 06:37 Results & Data ([facility]) Laboratory Results Laboratory Results - last 24 hr 11/26/21 11/29/21 18:34 07:48 Fasting Glucose Pending Triglycerides Pending Cholesterol Pending LDL Cholesterol, Calc Pending VLDL Cholesterol, Calc Pending HDL Cholesterol Pending Cholesterol/HDL Ratio Pending U Amphetamines Confirm 3070 H U Methamphetamin Confrm NEGATIVE U Marijuana THC Carboxy 4556 H Drug Screen Comment SEE NOTE Current Inpatient Medications Current Inpatient Medications: Current Inpatient Medications Acetaminophen (Acetaminophen 325 Mg Tab) 650 mg PO Q4H PRN PRN Reason: Headache or Minor Fever Stop: 12/27/21 01:16 Last Admin: 11/27/21 10:38 Dose: 650 mg Documented by: Al Hydrox/Mg Hydrox/Simethicone (Aluminum/Magnesium Susp 30 Ml Udc) 30 ml PO Q4H PRN PRN Reason: GI Upset Stop: 12/27/21 01:16 Bismuth Subsalicylate (Bismuth Subsalicylate Liqd 236 Ml) 15 ml PO PRN PRN PRN Reason: Loose Stool Stop: 12/27/21 01:16 Hydroxyzine HCl (Hydroxyzine Hcl 25 Mg Tab) 50 mg PO HSZ PRN PRN Reason: Insomnia Stop: 12/27/21 01:16 Last Admin: 11/27/21 02:31 Dose: 50 mg Documented by: Hydroxyzine HCl (Hydroxyzine Hcl 25 Mg Tab) 25 mg PO Q4H PRN PRN Reason: Anxiety Stop: 12/27/21 01:16 Magnesium Hydroxide (Magnesium Hydroxide Susp 30 Ml Udc) 30 ml PO DAILY PRN PRN Reason: Constipation Stop: 12/27/21 01:16 Miscellaneous (Remove Nicoderm Patch) 1 ea N/A DAILY@0859 [facility] Stop: 12/28/21 08:58 Last Admin: 11/29/21 08:32 Dose: Not Given Documented by: Nicotine (Nicotine 7 Mg/24 Hr Tdsy) 7 mg TD QAM PRN PRN Reason: nicotine cravings Stop: 12/28/21 14:14 Last Admin: 11/28/21 10:41 Dose: 7 mg Documented by: Nicotine Polacrilex (Nicotine Polacrilex 2 Mg Gum) 1 piece MT PRN PRN PRN Reason: nicotine cravings Stop: 12/27/21 13:56 Olanzapine (Olanzapine 5 Mg Tablet) 5 mg PO QAM GARETH Stop: 12/29/21 08:59 Last Admin: 11/29/21 08:30 Dose: 5 mg Documented by: Olanzapine (Olanzapine 10 Mg Tab) 10 mg PO HS [facility] Stop: 12/28/21 21:59 Last Admin: 11/28/21 21:15 Dose: 10 mg Documented by: Olanzapine (Olanzapine 5 Mg Tablet) 5 mg PO TID PRN PRN Reason: Anxiety/Agitation Stop: 12/27/21 01:14 Sodium Chloride (Sodium Chloride 0.65% Na Soln 45 Ml ([place])) 1 - 2 sprays NA PRN PRN PRN Reason: Nasal Dryness/Congestion Stop: 12/27/21 01:16 Mental Health & Subst Abuse Tx Therapist Name of Therapist: None Hole Digger Name of Hole Digger: None Post Discharge Appointments Primary Care Physician Name Of Family Doctor: none
[2021-11-29] MEDS: OLANZapine 10 MG TAB PO SCH (20:47)
[2021-11-30] MEDS: OLANZapine 5 MG TABLET PO SCH (08:45)
--- NOTE | 2021-11-30 08:48 | Psychiatric Progress Note ---
Date of Service November 30, 2021 Impression / Recommendations Impression The patient is a 25 year old man with a history of ADHD who was admitted for worsening psychosis in the context of synthetic cannabis use and recent switch from Adderall to Vyvanse and ongoing stress related to an upcoming move across the country next month. Diagnostically consistent with unspecified psychosis, differential including substance-induced vs medication-induced vs BPAD with ken vs primary psychotic disorder/brief psychotic episode vs MDD with psychotic features. Medical cause unlikely given no neurological symptoms, stable vital signs and recent increase in substance use and med change that better explains recent symptom emergence. The patient is deemed unstable and requires psychiatric hospitalization for diagnostic clarification, safety and stabilization, medication management and development of further coping skills. MNPR due tp acute psychosis and paranoia and inability to tolerate interactions with peers. 11/30/21: Some ongoing improvement in psychosis, suspect substance-induced but still with periods of significant behavioral disorganization. Ongoing motivational interviewing related to synthetic cannabis use. (1) Brief psychotic disorder: (2) ADHD: (3) Cannabis use disorder, moderate, dependence: 11/30/21: Continue medications and tx plan. Motivational interviewing regarding substance use. Working on finding healthier coping mechanisms for anxiety and stress. 11/29/21: Continue zyprexa and current tx plan. 11/28/21: Increase to zyprexa 5mg qAM and 10 mg qHS. Fasting labwork in the morning. 11/27/21: The patient was admitted to the [facility] ([facility] mental health unit) on q15 min checks (behavioral with suicide precautions) for safety. The patient will participate in group, recreational, and milieu therapies and will be offered additional individual and family sessions as clinically appropriate. -Start zyprexa 2.5 mg qAM & 5 mg qhs -fasting lipid and glucose when able to tolerate (hopefully in next 1-2 days) -NRT patch and gum prn -Will attempt to reach out to Dr. Rosa once he signs PING and given constraints of holiday weekend Inventory Assets Strengths: supportive family and partner, employed, some ability to reality-test, willing to seek treatment Needs: medication adjustment, safety/stabilization, additional coping skills Suicide Risk Level Suicide Risk Level: Moderate (q15 min suicide checks) Suicide Risk Level Comments: Acute risk is elevated given psychosis but denies SI today and also able to safety contract, feels safe here, agrees to notify nursing if he develops active SI and denies command AH. 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 Chief Complaint "I feel like I'm made a bit of a breakthrough". Review of Systems Sleep Information Total Hours of Sleep: 8 Sleep Comments: pt on q-15 minute checks Meal Information Percent Meal Consumed - Breakfast: 25 Percent Meal Consumed - Lunch: 100 Percent Meal Consumed - Dinner: 75 Nutrition Comment: pt. ate 50% of breakfast after sleeping in Subjective Subjective Patient was seen & assessed and interval progress reviewed with treatment team nursing and social work. Did not require any prn zyprexa yesterday. Periods of more logical thought content mixed in with odd behaviors like putting a book he was reading in a linen hamper with dirty towels and sheets. Slept well. Some constipation today, discussed that this can occur with olanzapine he would like stool softeners and constipation aids. No SI today. Discussed recent stressors including his new job, upcoming move and his girlfriend having a high stakes exam last week. Reflected on his cannabis use, he was sober for 5 years after disciplinary action in college but then resumed use after using LSD with friends. He states his intent to "never use cannabis again" and we discussed goal of working on finding other healthy coping strategies to manage anxiety and stress. He feels his mind is clearer and that paranoia is lessening. Still making some odd statements at times during our discussion. Physical Exam Psychiatric Orientation: alert and oriented x 3 Apperance: appropriately dressed and appropriately groomed Eye Contact: + fair eye contact Motor Behavior: no abnormal motor movements Speech: normal rate/rhythm/volume of speech Affect: + labile affect Mood: + anxious mood Thought Process: + circumstantial thought process and + looseness of associations Thought Content: + paranoid and + ideas of reference Suicidal Thoughts: denies suicidal thoughts Homicidal Thoughts: denies homicidal thoughts Hallucinations: no auditory hallucinations and no visual hallucinations Cognition: recent memory grossly intact, remote memory grossly intact, attention grossly intact and language grossly intact Estimated Intelligence: consistent with education level Insight: + limited insight Judgement: + limited judgement Vital Signs (Past 24 Hours) Last Vital Signs Temp 36.8 C 11/30/21 06:35 Pulse 74 11/30/21 06:35 Resp 16 11/30/21 06:35 BP 130/87 11/30/21 06:35 Pulse Ox 100 11/27/21 06:37 Results & Data ([facility]) Laboratory Results Laboratory Results - last 24 hr 11/29/21 07:48 Fasting Glucose 87 Triglycerides 69 Cholesterol 163 LDL Cholesterol, Calc 112 VLDL Cholesterol, Calc 14 HDL Cholesterol 37 Cholesterol/HDL Ratio 4.4 Current Inpatient Medications Current Inpatient Medications: Current Inpatient Medications Acetaminophen (Acetaminophen 325 Mg Tab) 650 mg PO Q4H PRN PRN Reason: Headache or Minor Fever Stop: 12/27/21 01:16 Last Admin: 11/27/21 10:38 Dose: 650 mg Documented by: Al Hydrox/Mg Hydrox/Simethicone (Aluminum/Magnesium Susp 30 Ml Udc) 30 ml PO Q4H PRN PRN Reason: GI Upset Stop: 12/27/21 01:16 Bismuth Subsalicylate (Bismuth Subsalicylate Liqd 236 Ml) 15 ml PO PRN PRN PRN Reason: Loose Stool Stop: 12/27/21 01:16 Hydroxyzine HCl (Hydroxyzine Hcl 25 Mg Tab) 50 mg PO HSZ PRN PRN Reason: Insomnia Stop: 12/27/21 01:16 Last Admin: 11/27/21 02:31 Dose: 50 mg Documented by: Hydroxyzine HCl (Hydroxyzine Hcl 25 Mg Tab) 25 mg PO Q4H PRN PRN Reason: Anxiety Stop: 12/27/21 01:16 Magnesium Hydroxide (Magnesium Hydroxide Susp 30 Ml Udc) 30 ml PO DAILY PRN PRN Reason: Constipation Stop: 12/27/21 01:16 Miscellaneous (Remove Nicoderm Patch) 1 ea N/A DAILY@0859 GARETH Stop: 12/28/21 08:58 Last Admin: 11/29/21 08:32 Dose: Not Given Documented by: Nicotine (Nicotine 7 Mg/24 Hr Tdsy) 7 mg TD QAM PRN PRN Reason: nicotine cravings Stop: 12/28/21 14:14 Last Admin: 11/28/21 10:41 Dose: 7 mg Documented by: Nicotine Polacrilex (Nicotine Polacrilex 2 Mg Gum) 1 piece MT PRN PRN PRN Reason: nicotine cravings Stop: 12/27/21 13:56 Olanzapine (Olanzapine 5 Mg Tablet) 5 mg PO QAM GARETH Stop: 12/29/21 08:59 Last Admin: 11/29/21 08:30 Dose: 5 mg Documented by: Olanzapine (Olanzapine 10 Mg Tab) 10 mg PO HS GARETH Stop: 12/28/21 21:59 Last Admin: 11/29/21 20:47 Dose: 10 mg Documented by: Olanzapine (Olanzapine 5 Mg Tablet) 5 mg PO TID PRN PRN Reason: Anxiety/Agitation Stop: 12/27/21 01:14 Sodium Chloride (Sodium Chloride 0.65% Na Soln 45 Ml ([place])) 1 - 2 sprays NA PRN PRN PRN Reason: Nasal Dryness/Congestion Stop: 12/27/21 01:16 Mental Health & Subst Abuse Tx Therapist Name of Therapist: None Exchange Specialist Name of Exchange Specialist: None Post Discharge Appointments Primary Care Physician Name Of Family Doctor: none
[2021-11-30] MEDS: OLANZapine 10 MG TAB PO SCH (21:05)
[2021-12-01] MEDS ORDERED: SENNA 8.6 MG TAB PO PRN (08:54)
--- NOTE | 2021-12-01 08:54 | Psychiatric Progress Note ---
Date of Service December 01, 2021 Impression / Recommendations Impression The patient is a 25 year old man with a history of ADHD who was admitted for worsening psychosis in the context of synthetic cannabis use and recent switch from Adderall to Vyvanse and ongoing stress related to an upcoming move across the country next month. Diagnostically consistent with unspecified psychosis, differential including substance-induced vs medication-induced vs BPAD with ken vs primary psychotic disorder/brief psychotic episode vs MDD with psychotic features. Medical cause unlikely given no neurological symptoms, stable vital signs and recent increase in substance use and med change that better explains recent symptom emergence. The patient is deemed unstable and requires psychiatric hospitalization for diagnostic clarification, safety and stabilization, medication management and development of further coping skills. MNPR due tp acute psychosis and paranoia and inability to tolerate interactions with peers. 12/01/21: Some ongoing improvement in psychosis, substance-induced seems most likely given fairly rapid response of symptoms to antipsychotic initiation. Still with periods of behavioral disorganization. Ongoing motivational interviewing related to synthetic cannabis use. Needs a family meeting and outpatient resources. (1) Brief psychotic disorder: (2) ADHD: (3) Cannabis use disorder, moderate, dependence: 12/01/21: Continue current medications and tx plan. Ongoing motivational interviewing. 11/30/21: Continue medications and tx plan. Motivational interviewing regarding substance use. Working on finding healthier coping mechanisms for anxiety and stress. 11/29/21: Continue zyprexa and current tx plan. 11/28/21: Increase to zyprexa 5mg qAM and 10 mg qHS. Fasting labwork in the morning. 11/27/21: The patient was admitted to the [facility] ([facility] mental health unit) on q15 min checks (behavioral with suicide precautions) for safety. The patient will participate in group, recreational, and milieu therapies and will be offered additional individual and family sessions as clinically appropriate. -Start zyprexa 2.5 mg qAM & 5 mg qhs -fasting lipid and glucose when able to tolerate (hopefully in next 1-2 days) -NRT patch and gum prn -Will attempt to reach out to Dr. Rosa once he signs PING and given constraints of holiday weekend Inventory Assets Strengths: supportive family and partner, employed, some ability to reality-test, willing to seek treatment Needs: medication adjustment, safety/stabilization, additional coping skills Suicide Risk Level Suicide Risk Level: Moderate (q15 min suicide checks) Suicide Risk Level Comments: Acute risk is elevated given psychosis but this is improving and mood lability is lessening and denies SI and also able to safety contract, feels safe here, agrees to notify nursing if he develops active SI and denies command AH. 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 Chief Complaint "I feel so much better". Review of Systems Sleep Information Total Hours of Sleep: 8.5 Sleep Comments: pt on q-15 minute checks Meal Information Percent Meal Consumed - Breakfast: 75 Percent Meal Consumed - Lunch: 100 Percent Meal Consumed - Dinner: 100 Nutrition Comment: pt. ate 50% of breakfast after sleeping in Subjective Subjective Patient was seen & assessed and interval progress reviewed with treatment team nursing and social work. Showered yesterday and was more organized. Still odd at times but able to tolerate phone calls with his gf and family this morning. He had a bowel movement this morning and denies any further constipation. He continues to feel that olanzapine is helping with the paranoia and psychosis and feels like his thoughts are more clear. Denies SI. Ongoing motivation interviewing regarding cannabis use, he agrees that it was a problem and is interested in outpatient substance use therapy resources. Physical Exam Psychiatric Orientation: alert and oriented x 3 Apperance: appropriately dressed and appropriately groomed Eye Contact: + fair eye contact Motor Behavior: no abnormal motor movements Speech: normal rate/rhythm/volume of speech Affect: + constricted affect Mood: + depressed mood and + anxious mood Thought Process: + circumstantial thought process Thought Content: reality based without delusions; not paranoid, no delusions, no ideas of reference and no thought broadcasting Suicidal Thoughts: denies suicidal thoughts Homicidal Thoughts: denies homicidal thoughts Hallucinations: no auditory hallucinations and no visual hallucinations Cognition: recent memory grossly intact, remote memory grossly intact, attention grossly intact and language grossly intact Estimated Intelligence: consistent with education level Insight: + limited insight Judgement: + limited judgement Vital Signs (Past 24 Hours) Last Vital Signs Temp 36.5 C 12/01/21 06:00 Pulse 92 H 12/01/21 06:19 Resp 16 12/01/21 06:00 BP 131/82 12/01/21 06:19 Pulse Ox 100 11/27/21 06:37 Results & Data ([facility]) Current Inpatient Medications Current Inpatient Medications: Current Inpatient Medications Acetaminophen (Acetaminophen 325 Mg Tab) 650 mg PO Q4H PRN PRN Reason: Headache or Minor Fever Stop: 12/27/21 01:16 Last Admin: 11/27/21 10:38 Dose: 650 mg Documented by: Al Hydrox/Mg Hydrox/Simethicone (Aluminum/Magnesium Susp 30 Ml Udc) 30 ml PO Q4H PRN PRN Reason: GI Upset Stop: 12/27/21 01:16 Bismuth Subsalicylate (Bismuth Subsalicylate Liqd 236 Ml) 15 ml PO PRN PRN PRN Reason: Loose Stool Stop: 12/27/21 01:16 Hydroxyzine HCl (Hydroxyzine Hcl 25 Mg Tab) 50 mg PO HSZ PRN PRN Reason: Insomnia Stop: 12/27/21 01:16 Last Admin: 11/27/21 02:31 Dose: 50 mg Documented by: Hydroxyzine HCl (Hydroxyzine Hcl 25 Mg Tab) 25 mg PO Q4H PRN PRN Reason: Anxiety Stop: 12/27/21 01:16 Magnesium Hydroxide (Magnesium Hydroxide Susp 30 Ml Udc) 30 ml PO DAILY PRN PRN Reason: Constipation Stop: 12/27/21 01:16 Miscellaneous (Remove Nicoderm Patch) 1 ea N/A DAILY@0859 [facility] Stop: 12/28/21 08:58 Last Admin: 11/30/21 08:45 Dose: Not Given Documented by: Nicotine (Nicotine 7 Mg/24 Hr Tdsy) 7 mg TD QAM PRN PRN Reason: nicotine cravings Stop: 12/28/21 14:14 Last Admin: 11/28/21 10:41 Dose: 7 mg Documented by: Nicotine Polacrilex (Nicotine Polacrilex 2 Mg Gum) 1 piece MT PRN PRN PRN Reason: nicotine cravings Stop: 12/27/21 13:56 Olanzapine (Olanzapine 5 Mg Tablet) 5 mg PO QAM GARETH Stop: 12/29/21 08:59 Last Admin: 11/30/21 08:45 Dose: 5 mg Documented by: Olanzapine (Olanzapine 10 Mg Tab) 10 mg PO HS GARETH Stop: 12/28/21 21:59 Last Admin: 11/30/21 21:05 Dose: 10 mg Documented by: Olanzapine (Olanzapine 5 Mg Tablet) 5 mg PO TID PRN PRN Reason: Anxiety/Agitation Stop: 12/27/21 01:14 Sodium Chloride (Sodium Chloride 0.65% Na Soln 45 Ml ([place])) 1 - 2 sprays NA PRN PRN PRN Reason: Nasal Dryness/Congestion Stop: 12/27/21 01:16 Mental Health & Subst Abuse Tx Therapist Name of Therapist: None Cotton Baler Name of Cotton Baler: None Post Discharge Appointments Primary Care Physician Name Of Family Doctor: none
[2021-12-01] MEDS ORDERED: DOCUSATE SODIUM 100 MG CAP PO SCH (09:00)
[2021-12-01] MEDS: OLANZapine 5 MG TABLET PO SCH (10:20)
[2021-12-01] MEDS ORDERED: DOCUSATE SODIUM 100 MG CAP PO PRN (16:11)
[2021-12-01] MEDS: OLANZapine 10 MG TAB PO SCH (22:16)
[2021-12-02] MEDS: OLANZapine 5 MG TABLET PO SCH (08:10)
--- NOTE | 2021-12-02 08:47 | Psychiatric Progress Note ---
Date of Service December 02, 2021 Impression / Recommendations Impression The patient is a 25 year old man with a history of ADHD who was admitted for worsening psychosis in the context of synthetic cannabis use and recent switch from Adderall to Vyvanse and ongoing stress related to [place] upcoming [place]. Diagnostically consistent with unspecified psychosis, differential including substance-induced vs medication-induced vs BPAD with ken vs primary psychotic disorder/brief psychotic episode vs MDD with psychotic features. Medical cause unlikely given no neurological symptoms, stable vital signs and recent increase in substance use and med change that better explains recent symptom emergence. The patient is deemed unstable and requires psychiatric hospitalization for diagnostic clarification, safety and stabilization, medication management and development of further coping skills. MNPR due tp acute psychosis and paranoia and inability to tolerate interactions with peers. 12/02/21: Lessening of psychosis and more organized and improving mood. Tolerating olanzapine well. Continuing to work on coping skills to help reduce anxiety and help him avoid resumption of cannabis which he was using to cope with stress and anxiety. Ongoing motivational interviewing related to synthetic cannabis use. Participated in family meeting and answered questions and provided information on his diagnosis and expected illness course and answered medication questions for 35 minutes. (1) Brief psychotic disorder: (2) ADHD: (3) Cannabis use disorder, moderate, dependence: 12/02/21: Continue current medications and tx plan. 12/01/21: Continue current medications and tx plan. Ongoing motivational interviewing. 11/30/21: Continue medications and tx plan. Motivational interviewing regarding substance use. Working on finding healthier coping mechanisms for anxiety and stress. 11/29/21: Continue zyprexa and current tx plan. 11/28/21: Increase to zyprexa 5mg qAM and 10 mg qHS. Fasting labwork in the morning. 11/27/21: The patient was admitted to the [facility] ([facility]) on q15 min checks (behavioral with suicide precautions) for safety. The patient will participate in group, recreational, and milieu therapies and will be offered additional individual and family sessions as clinically appropriate. -Start zyprexa 2.5 mg qAM & 5 mg qhs -fasting lipid and glucose when able to tolerate (hopefully in next 1-2 days) -NRT patch and gum prn -Will attempt to reach out to Dr. Moe once he signs PING and given constraints of holiday weekend Inventory Assets Strengths: supportive family and partner, employed, some ability to reality-test, willing to seek treatment Needs: medication adjustment, safety/stabilization, additional coping skills Suicide Risk Level Suicide Risk Level: Moderate (q15 min suicide checks) Suicide Risk Level Comments: Acute risk is elevated given psychosis but this is improving and mood lability is lessening and denies SI and also able to safety contract, feels safe here, agrees to notify nursing if he develops active SI and denies command AH. 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 Chief Complaint "I'm feeling pretty good". Review of Systems Sleep Information Total Hours of Sleep: 8 Sleep Comments: pt on q-15 minute checks Meal Information Percent Meal Consumed - Breakfast: 100 Percent Meal Consumed - Lunch: 100 Percent Meal Consumed - Dinner: 100 Nutrition Comment: pt. ate 50% of breakfast after sleeping in Subjective Subjective Patient was seen & assessed and interval progress reviewed with treatment team nursing and social work. Still doing some unusual things with gathering his belongings and storing them in odd places but otherwise much more organized. participated in zoom family meeting with Dinora, his parents, his girlfriend and social work. Dinora denies any SI. Denies any constipation nor other side effects from olanzapine. Ongoing motivational interviewing regarding cannabis use which he plans to avoid. Physical Exam Psychiatric Orientation: alert and oriented x 3 Apperance: appropriately dressed and appropriately groomed Eye Contact: + fair eye contact Motor Behavior: no abnormal motor movements Speech: normal rate/rhythm/volume of speech Affect: + constricted affect Mood: + anxious mood Thought Process: goal directed thought process Thought Content: reality based without delusions; not paranoid, no delusions, no ideas of reference and no thought broadcasting Suicidal Thoughts: denies suicidal thoughts Homicidal Thoughts: denies homicidal thoughts Hallucinations: no auditory hallucinations and no visual hallucinations Cognition: recent memory grossly intact, remote memory grossly intact, attention grossly intact and language grossly intact Estimated Intelligence: consistent with education level Insight: + fair insight Judgement: + limited judgement Vital Signs (Past 24 Hours) Last Vital Signs Temp 36.5 C 12/02/21 06:00 Pulse 97 H 12/02/21 06:19 Resp 16 12/02/21 06:00 BP 129/86 12/02/21 06:19 Pulse Ox 100 11/27/21 06:37 Results & Data ([facility]) Current Inpatient Medications Current Inpatient Medications: Current Inpatient Medications Acetaminophen (Acetaminophen 325 Mg Tab) 650 mg PO Q4H PRN PRN Reason: Headache or Minor Fever Stop: 12/27/21 01:16 Last Admin: 11/27/21 10:38 Dose: 650 mg Documented by: Al Hydrox/Mg Hydrox/Simethicone (Aluminum/Magnesium Susp 30 Ml Udc) 30 ml PO Q4H PRN PRN Reason: GI Upset Stop: 12/27/21 01:16 Bismuth Subsalicylate (Bismuth Subsalicylate Liqd 236 Ml) 15 ml PO PRN PRN PRN Reason: Loose Stool Stop: 12/27/21 01:16 Docusate Sodium (Docusate Sodium 100 Mg Cap) 100 mg PO BID PRN PRN Reason: Constipation Stop: 12/31/21 08:59 Hydroxyzine HCl (Hydroxyzine Hcl 25 Mg Tab) 50 mg PO HSZ PRN PRN Reason: Insomnia Stop: 12/27/21 01:16 Last Admin: 11/27/21 02:31 Dose: 50 mg Documented by: Hydroxyzine HCl (Hydroxyzine Hcl 25 Mg Tab) 25 mg PO Q4H PRN PRN Reason: Anxiety Stop: 12/27/21 01:16 Magnesium Hydroxide (Magnesium Hydroxide Susp 30 Ml Udc) 30 ml PO DAILY PRN PRN Reason: Constipation Stop: 12/27/21 01:16 Miscellaneous (Remove Nicoderm Patch) 1 ea N/A DAILY@[id number] [facility] Stop: 12/28/21 08:58 Last Admin: 12/02/21 08:07 Dose: Not Given Documented by: Nicotine (Nicotine 7 Mg/24 Hr Tdsy) 7 mg TD QAM PRN PRN Reason: nicotine cravings Stop: 12/28/21 14:14 Last Admin: 11/28/21 10:41 Dose: 7 mg Documented by: Nicotine Polacrilex (Nicotine Polacrilex 2 Mg Gum) 1 piece MT PRN PRN PRN Reason: nicotine cravings Stop: 12/27/21 13:56 Olanzapine (Olanzapine 5 Mg Tablet) 5 mg PO QAM GARETH Stop: 12/29/21 08:59 Last Admin: 12/02/21 08:10 Dose: 5 mg Documented by: Olanzapine (Olanzapine 10 Mg Tab) 10 mg PO HS GARETH Stop: 12/28/21 21:59 Last Admin: 12/01/21 22:16 Dose: 10 mg Documented by: Olanzapine (Olanzapine 5 Mg Tablet) 5 mg PO TID PRN PRN Reason: Anxiety/Agitation Stop: 12/27/21 01:14 Sennosides (Senna 8.6 Mg Tab) 8.6 mg PO QAM PRN PRN Reason: Constipation Stop: 12/31/21 08:59 Sodium Chloride (Sodium Chloride 0.65% Na Soln 45 Ml ([place])) 1 - 2 sprays NA PRN PRN PRN Reason: Nasal Dryness/Congestion Stop: 12/27/21 01:16 Mental Health & Subst Abuse Tx Therapist Name of Therapist: None Loom Tuner Name of Loom Tuner: None Post Discharge Appointments Primary Care Physician Name Of Family Doctor: none
[2021-12-02] MEDS: OLANZapine 10 MG TAB PO SCH (21:19)
[2021-12-03] MEDS: OLANZapine 5 MG TABLET PO SCH (08:31)
--- NOTE | 2021-12-03 14:56 | Discharge Summary ---
Date of Service December 03, 2021 History of Present Illness Peter presents for psychiatric admission for worsening paranoia, disorganized behaviors, auditory hallucinations which started about three weeks ago and have been acutely worsening since Monday. He also developed passive SI in the last few days due to feeling like he's "losing my mind". He notes "I know it's just in my head" but feels unable to manage the auditory hallucinations nor paranoia. He is very tearful and distraught throughout the interview expressing his distress from the psychosis symptoms but can confirm that things worsened acutely in the last few days and that the zyprexa last night "really helped, it was the first time I've been able to calm down in weeks". Further history is based on his report as well as collateral from ED reports supplied in part by his girlfriend and collateral from his mother. About 3 weeks ago due to a change in insurance coverage his psychiatrist switched him from Adderall to Vyvanse but he felt more activated and paranoid with this change and they had recently reduced the dose and then he discontinued it on . He's also been using delta 8, a synthetic cannabis product, and vaping high amounts of nicotine in the last 4 weeks. He's had more disrupted sleep patterns-sleeping a lot and then more insomnia, as well as alteration in appetite with increased at times and then periods of decreased appetite with reported weight loss of up to 30lbs in the last month. BMI on admission is 25 and normal. On Monday he had to stop his work day early due to worsening disorganization and became worried that he was being monitored and took apart his computer and removed the [employer] card from his phone. He was paranoid his conversations with his girlfriend were being monitored through her [employer]. He also reported auditory hallucinations of "noises" in the zepeda and "from my stomach". 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 His job has been very stressful recently and he and his girlfriend are in the process of moving at the start of December to [place]. His mother noted that he previously became very paranoia and locked himself in his apartment in college after being prescribed Vyvanse. Other recent symptoms of psychosis include questioning if his sister was actually his sister and on admission to [facility] tried to eat a banana with a straw and thought some of his patient rights materials were written in Belarusian. Physical Exam Vital Signs (Past 24 Hours) Last Vital Signs Temp 36.6 C 12/03/21 06:39 Pulse 70 12/03/21 06:40 Resp 16 12/03/21 06:39 BP 110/78 12/03/21 06:40 Pulse Ox 100 11/27/21 06:37 See admission H&P and DOD summary. Principal Diagnosis Brief psychotic episode, Cannabis-induced psychotic disorder Psychiatric Data See daily stay summary. In the initial days of his stay Peter had symptoms of acute psychosis with paranoia, delusions and behavioral disorganization (struggling to independently complete his ADLs) as well as mood lability with frequent tearfulness and SI. However after a few days with medication initiation and support his symptoms began to improve and he was engaged with the social/therapeutic milieu of the unit, safety was maintained and the patient was cooperative with care. Medication changes included initiation of olanzapine and titration to 5mg qAM & 10mg qhs and discontinuation of prior to admission Vyvanse and they tolerated this well. Given that the most likely diagnosis is cannabis-induced psychotic disorder would continue with olanzapine for next 1- 1.5 months with subsequent taper to discontinuation if tolerated without re- emergence of psychosis symptoms. SSRI trial could be considered in the future if anxiety or depression occurs in the future. Would reassess for accuracy of ADHD diagnosis and need for medication after a period of psychiatric stability, if stimulant medication is used in the future would avoid Vyvanse (now two episodes of increased paranoia in context of Vyvanse use) and titrate cautiously. Baseline labs of fasting glucose, HbA1c, fasting lipid profile, and weight were preformed and WNL. Recommend repeat weight in one to two months. Recommend repeat fasting glucose and fasting lipid profile every 12 weeks and then annually if he remains on olanzapine. If symptoms arise recommend checking BP, EKG, prolactin level as clinically indicated or relevant. Extensive motivational interviewing was done regarding cannabis and substance use and Peter is the action stage with a plan to avoid all substance use. He is also motivated to engage in outpatient therapy and dual diagnosis psychiatric clinic. A family session was held and safety plan was completed prior to discharge. In the days leading up to discharge he consistently denied any SI. He actively and insightfully participated in safety planning and in discussions about ways to seek support and recognizing warning signs and utilizing coping skills. Reviewed mobile apps that could be used for additional ways to have their safety plan and contacts easily available should thoughts of SI re-emerge in the future. Reviewed importance of seeking emergency care should SI re- occur,intensify, worsen or should they feel unsafe in the future or if psychosis re-emerges which they agree to do. On the day of discharge he stated his mood was "great and excited to go" and remained future-oriented including spending time with his girlfriend, seeing his family and engaging in aftercare appointments for psychiatry, therapy and moving to [place]. Day of Discharge Assessment Today the patient voices readiness for discharge. They note improvement in mood and anxiety. They deny thoughts of harm to self or others. Thoughts are organized and they are clinically improved from admission. There is no evidence of psychosis. They improved in the hospital with support and medication adjustments. They agree to take medications as prescribed and keep follow-up appointments. At the time of the discharge they are deemed to be stable and appropriate for outpatient level of care. They are not deemed to be at imminent risk of harm to self or others. They are aware of emergency and crisis services. Knows to call 911 or go to nearest emergency care center if in a crisis which cannot be handled as an outpatient. Transition of Care Transition Of Care Record: was reviewed with the patient Advance Directives Advance Directives Information Provided: Yes Advance Directives: No Mental Health Advance Directive: No Advance Directives on File: No Living Will: No Power of Treer: No Advance Directives Reason:: Declines as Mental Health Visit. Suicide Risk Level Suicide Risk Level Comments: Acute risk is low given improvement in mood and denial of SI, lack of access to lethal means ,plan to avoid substance use ,improvement in sleep ,hopefulness improvement in psychosis. Chronic risk is low given lack of non-modifiable risk factors and many protective factors. Counseled on ways to reduce acute and chronic risk including engaging with outpatient providers, using safety plan if needed, utilizing supports, taking medication, avoiding substance use and using coping skills. Modifiable risk factors of SI and psychosis were addressed during hospitalization through development of new coping skills, family meeting, safety planning, and medication adjustments. 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 Relationships: Yes Supportive Family: Yes Good Rapport with Provider: Yes Discharge Data Lab Results 11/26/21 11/26/21 11/26/21 18:34 18:34 18:34 WBC 9.79 RBC 5.34 Hgb 15.5 Hct 45.8 MCV 85.8 MCH 29.0 MCHC 33.8 RDW Std Deviation 40.7 RDW Coeff of Helder 13.0 Plt Count 297 MPV 9.8 Immature Gran % (Auto) 0.2 Neut % (Auto) 61.3 Lymph % (Auto) 30.4 [place] % (Auto) 7.0 Eos % (Auto) 0.8 Baso % (Auto) 0.3 Neut # (Auto) 5.99 Lymph # (Auto) 2.98 [place] # (Auto) 0.69 H Eos # (Auto) 0.08 Baso # (Auto) 0.03 Immature Gran # (Auto) 0.02 Sodium 138 Potassium 3.6 Chloride 105 Carbon Dioxide 22 Anion Gap 11 BUN 13 Creatinine 0.86 Est Cr Clr Drug Dosing 154.0 Est GFR ( Amer) 140.7 Est GFR (Non-Af Amer) 121.4 BUN/Creatinine Ratio 15.1 Glucose 80 Fasting Glucose Calcium 9.7 Total Bilirubin 0.7 AST 24 ALT 46 Alkaline Phosphatase 78 Total Protein 7.7 Albumin 4.9 Globulin 2.8 Albumin/Globulin Ratio 1.8 Triglycerides Cholesterol LDL Cholesterol, Calc VLDL Cholesterol, Calc HDL Cholesterol Cholesterol/HDL Ratio TSH 1.026 Urine Color Urine Appearance Urine pH Ur Specific [place] Urine Protein Urine Glucose (UA) Urine Ketones Urine Blood Urine Nitrite Urine Bilirubin Urine Urobilinogen Ur Leukocyte Esterase Urine WBC (Auto) Urine RBC (Auto) U Hyaline Cast (Auto) U Epithel Cells (Auto) Urine Bacteria (Auto) Salicylates Urine Opiates Screen Ur Methadone, Qual Acetaminophen Urine Barbiturates Ur Phencyclidine (PCP) U Amphetamines Confirm U Amphetamin/Meth Scrn U Methamphetamin Confrm MDMA (Ecstasy) Screen U Benzodiazepines Scrn Ur Cocaine Metabolite U Marijuana (THC) Screen U Marijuana THC Carboxy Drug Screen Comment Ethyl Alcohol mg/dL SARS-CoV-2, RNA, NAAT 11/26/21 11/26/21 11/26/21 18:34 18:34 18:34 WBC RBC Hgb Hct MCV MCH MCHC RDW Std Deviation RDW Coeff of Helder Plt Count MPV Immature Gran % (Auto) Neut % (Auto) Lymph % (Auto) [place] % (Auto) Eos % (Auto) Baso % (Auto) Neut # (Auto) Lymph # (Auto) [place] # (Auto) Eos # (Auto) Baso # (Auto) Immature Gran # (Auto) Sodium Potassium Chloride Carbon Dioxide Anion Gap BUN Creatinine Est Cr Clr Drug Dosing Est GFR ( Amer) Est GFR (Non-Af Amer) BUN/Creatinine Ratio Glucose Fasting Glucose Calcium Total Bilirubin AST ALT Alkaline Phosphatase Total Protein Albumin Globulin Albumin/Globulin Ratio Triglycerides Cholesterol LDL Cholesterol, Calc VLDL Cholesterol, Calc HDL Cholesterol Cholesterol/HDL Ratio TSH Urine Color Dark Yellow Urine Appearance Clear Urine pH 6.0 Ur Specific [place] 1.038 H Urine Protein Trace H Urine Glucose (UA) Negative Urine Ketones 4+ H Urine Blood Negative Urine Nitrite Negative Urine Bilirubin Negative Urine Urobilinogen Negative Ur Leukocyte Esterase Negative Urine WBC (Auto) 1-5 Urine RBC (Auto) 0-4 U Hyaline Cast (Auto) 1-5 U Epithel Cells (Auto) 5-10 H Urine Bacteria (Auto) Negative Salicylates < 3.0 L Urine Opiates Screen Ur Methadone, Qual Acetaminophen < 3 L Urine Barbiturates Ur Phencyclidine (PCP) U Amphetamines Confirm U Amphetamin/Meth Scrn U Methamphetamin Confrm MDMA (Ecstasy) Screen U Benzodiazepines Scrn Ur Cocaine Metabolite U Marijuana (THC) Screen U Marijuana THC Carboxy Drug Screen Comment Ethyl Alcohol mg/dL < 10.0 SARS-CoV-2, RNA, NAAT 11/26/21 11/26/21 11/26/21 18:34 18:34 18:34 WBC RBC Hgb Hct MCV MCH MCHC RDW Std Deviation RDW Coeff of Helder Plt Count MPV Immature Gran % (Auto) Neut % (Auto) Lymph % (Auto) [place] % (Auto) Eos % (Auto) Baso % (Auto) Neut # (Auto) Lymph # (Auto) [place] # (Auto) Eos # (Auto) Baso # (Auto) Immature Gran # (Auto) Sodium Potassium Chloride Carbon Dioxide Anion Gap BUN Creatinine Est Cr Clr Drug Dosing Est GFR ( Amer) Est GFR (Non-Af Amer) BUN/Creatinine Ratio Glucose Fasting Glucose Calcium Total Bilirubin AST ALT Alkaline Phosphatase Total Protein Albumin Globulin Albumin/Globulin Ratio Triglycerides Cholesterol LDL Cholesterol, Calc VLDL Cholesterol, Calc HDL Cholesterol Cholesterol/HDL Ratio TSH Urine Color Urine Appearance Urine pH Ur Specific [place] Urine Protein Urine Glucose (UA) Urine Ketones Urine Blood Urine Nitrite Urine Bilirubin Urine Urobilinogen Ur Leukocyte Esterase Urine WBC (Auto) Urine RBC (Auto) U Hyaline Cast (Auto) U Epithel Cells (Auto) Urine Bacteria (Auto) Salicylates Urine Opiates Screen Neg Ur Methadone, Qual Neg Acetaminophen Urine Barbiturates Neg Ur Phencyclidine (PCP) Neg U Amphetamines Confirm 3070 H U Amphetamin/Meth Scrn Pos H U Methamphetamin Confrm NEGATIVE MDMA (Ecstasy) Screen Neg U Benzodiazepines Scrn Neg Ur Cocaine Metabolite Neg U Marijuana (THC) Screen Pos H U Marijuana THC Carboxy 4556 H Drug Screen Comment SEE NOTE Ethyl Alcohol mg/dL SARS-CoV-2, RNA, NAAT NEGATIVE 11/29/21 07:48 WBC RBC Hgb Hct MCV MCH MCHC RDW Std Deviation RDW Coeff of Helder Plt Count MPV Immature Gran % (Auto) Neut % (Auto) Lymph % (Auto) [place] % (Auto) Eos % (Auto) Baso % (Auto) Neut # (Auto) Lymph # (Auto) [place] # (Auto) Eos # (Auto) Baso # (Auto) Immature Gran # (Auto) Sodium Potassium Chloride Carbon Dioxide Anion Gap BUN Creatinine Est Cr Clr Drug Dosing Est GFR ( Amer) Est GFR (Non-Af Amer) BUN/Creatinine Ratio Glucose Fasting Glucose 87 Calcium Total Bilirubin AST ALT Alkaline Phosphatase Total Protein Albumin Globulin Albumin/Globulin Ratio Triglycerides 69 Cholesterol 163 LDL Cholesterol, Calc 112 VLDL Cholesterol, Calc 14 HDL Cholesterol 37 Cholesterol/HDL Ratio 4.4 TSH Urine Color Urine Appearance Urine pH Ur Specific [place] Urine Protein Urine Glucose (UA) Urine Ketones Urine Blood Urine Nitrite Urine Bilirubin Urine Urobilinogen Ur Leukocyte Esterase Urine WBC (Auto) Urine RBC (Auto) U Hyaline Cast (Auto) U Epithel Cells (Auto) Urine Bacteria (Auto) Salicylates Urine Opiates Screen Ur Methadone, Qual Acetaminophen Urine Barbiturates Ur Phencyclidine (PCP) U Amphetamines Confirm U Amphetamin/Meth Scrn U Methamphetamin Confrm MDMA (Ecstasy) Screen U Benzodiazepines Scrn Ur Cocaine Metabolite U Marijuana (THC) Screen U Marijuana THC Carboxy Drug Screen Comment Ethyl Alcohol mg/dL SARS-CoV-2, RNA, NAAT Hospital Course (1) Brief psychotic disorder: (2) ADHD: (3) Cannabis use disorder, moderate, dependence: (4) Cannabis-induced psychotic disorder: 12/03/21: Ongoing motivational interviewing. Stable for discharge. 12/02/21: Continue current medications and tx plan. 12/01/21: Continue current medications and tx plan. Ongoing motivational interviewing. 11/30/21: Continue medications and tx plan. Motivational interviewing regarding substance use. Working on finding healthier coping mechanisms for anxiety and stress. 11/29/21: Continue zyprexa and current tx plan. 11/28/21: Increase to zyprexa 5mg qAM and 10 mg qHS. Fasting labwork in the morning. 11/27/21: The patient was admitted to the [facility] ([facility] mental [facility] unit) on q15 min checks (behavioral with suicide precautions) for safety. The patient will participate in group, recreational, and milieu therapies and will be offered additional individual and family sessions as clinically appropriate. -Start zyprexa 2.5 mg qAM & 5 mg qhs -fasting lipid and glucose when able to tolerate (hopefully in next 1-2 days) -NRT patch and gum prn -Will attempt to reach out to Dr. Rosa once he signs PING and given constraints of holiday weekend Mental Health & Subst Abuse Tx Psychiatrist Name of Psychiatrist: [address] [place] [address] Psychiatry Psychiatrist's Date of Appointment with Psychiatrist: 01/13/22 Time of Appointment with Psychiatrist: 1:30 PM Psychiatric Appointment Comment: [address], [address], [place] [address] Therapist Name of Therapist: Kimberly Time of Therapist Appointment: [place] via [facility] after discharge. Supervisor [employer] Name of Supervisor [employer] Yard: None Post Discharge Appointments Primary Care Physician Name Of Family Doctor: [facility] - Eve Salazar PA-C Primary Care Date of Appointment with PCP: 12/09/21 Time of Appointment with PCP: 4:10 PM Provider Appointment Comment: Conrad [address], [place] [address] Contact Information Discharge Discharge [address] [address] [place] [address], [address] [place] [address] Discharge Plan Discharge Items Patient Disposition: Home - Self-Care Reason For Visit: PSYCHOSIS NOS Discharge Diagnosis: Substance-induced psychotic disorder Activity: Resume your previous activity Non-emergency contact: Primary Care Provider, Psychiatrist and Therapist Call non-emergency contact if: you have any medication questions and your symptoms worsen Follow-up/Referrals: PCP,NO [Primary Care Provider] - Diet: Regular Addtl Attending Provider Instructions: Optional Mobile Apps: -Suicide safety plan -Virtual Hope Box SPECIAL CARE INSTRUCTIONS: 1. Follow through with your scheduled aftercare appointments. If unable to keep an appointment, please call to reschedule. 2. Take your medication only as prescribed. Medication should not be changed or stopped without the approval of your doctor. In the event of worsening symptoms or concerns about side effects, contact your doctor immediately. 3. Utilize new healthy coping skills, anger management skills, and stress management skills learned during your hospitalization. Journal feelings and process them with a support person. Identify stressors or situations that may result in relapse, deterioration or inappropriate behaviors and develop a plan to deal with those issues. 4. If your coping skills are ineffective and you are in crisis, contact your outpatient providers for direction. If unable to reach your providers, please call the [facility] CRISIS LINE AT , go to the [facility] walk-in center at [address], [address], [place], or go to the closest Emergency Room. 5. Avoid alcohol and un-prescribed drugs. 6. You have been provided with the Mental Health Advance Directives Pamphlet for your review. 7. Your condition is stable for discharge to outpatient level of care, but recovery is an ongoing process. Ifthoughts to harm yourself or others return, follow the safety plan developed during your stay. Planning for a safe return home includes securing weapons. Our treatment team recommends weaponsbe removed from the home until your outpatient provider reassesses your progress. In rare cases where the items themselvescannot be removed, guns and ammunitionshould be secured separatelyand keys stored by a reliable personoutside of the home. If you were admitted on an involuntary commitment, the police or other legal authorities may be involved in this process. AFTERCARE APPOINTMENTS: * Please call your insurance company prior to your scheduled appointment to confirm your aftercare providers are covered. Take your insurance information to your appointments. WHO TO CALL AND WHEN: Medical Emergencies: For questions or emergencies related to your hospital stay, please contact the Inpatient Behavioral Health Unit at [phone]. A energy derivatives trader is on-call 23/01 for the Behavioral Health Unit for emergencies At any time you feel your situation is an emergency, you may also call 911 immediately. Pending Studies at Discharge: No Stand-Alone Forms: My [facility], Smoking Cessation Medications and DC Order Prescriptions: New olanzapine 5 mg Tablet 5 mg PO QAM 45 Days Qty: 45 RF: 0 olanzapine 10 mg Tablet 10 mg PO HS 45 Days Qty: 45 RF: 0 Discontinued melatonin 6 mg PO DAILY RF: 0 Vyvanse 40 mg capsule 40 mg PO DAILY RF: 0 Discharge Orders: Discharge Order (Routine); Ordered 12/03/21 Ordered By: Shanita Garduno/Other Patient Handouts: Journaling for Mental Health Admission Data Admit Date/Time: 11/27/21 00:31 Attending Provider: Shanita Reed Admit Provider: Shanita Reed Primary Care Provider: PCP,NO Other Interventions: Discharge Summary Assessment (RN) Last Done: 12/03/21 15:10 PSY Interdisciplinary Discharge Planning Last Done: 12/03/21 15:10 Coding Level of Care Code 55998 D/C day mgmt > 30 min Diagnoses Brief psychotic disorder F23 ADHD F90.9 Cannabis use disorder, moderate, dependence F12.20 Cannabis-induced psychotic disorder F12.959 Time Spent (min) 45
== END 2021-12-03 16:20 | disposition home or self-care (01) | DRG 897 ==
LOC: ED 17:46 → 3S 11-27 00:31